=== PATIENT | female | born 1950 | race Caucasian/White ===

== ENCOUNTER 2018-04-30 12:34 | Emergency (ER) | payer MEDICARE, OTHER ==
[~2018-04-30] VITALS: Ht 584.7 cm; Wt 70.0 kg
[~2018-04-30 12:34] MED LIST: ALBU8.5H8 INH; ALPR0.5T8 PO; AMIT-106 PO; CETI-194 PO; DIPH25CA83 PO; ESTR0.5T PO; HYDR12.5 PO; SENN-99 PO; SOTA80TA26 PO; SOTA80TA46 PO; WARF2.5T82 PO
[2018-04-30 13:08] LABS: BASOPHILS % (AUTO) 0.4 % (0-1); EOSINOPHILS # (AUTO) 0.1 X10'3 (0-0.9); EOSINOPHILS % (AUTO) 2.5 % (0-6); HEMATOCRIT 43.4 % (35.0-45.0); HEMOGLOBIN 14.8 g/dl (12.0-16.0); LYMPHOCYTES # (AUTO) 1.4 X10'3 (1.1-4.8); LYMPHOCYTES % (AUTO) 29.5 % (21-51); MEAN CORPUSCULAR HEMOGLOBIN 32.3 PG (27.0-31.0); MEAN CORPUSCULAR HGB CONC 34.2 % (33.0-36.5); MEAN CORPUSCULAR VOLUME 94.3 FL (78-98); MEAN PLATELET VOLUME 8.6 FL (7.4-10.4); MONOCYTES # (AUTO) 0.4 X10'3 (0-0.9); MONOCYTES % (AUTO) 8.6 % (2-12); NEUTROPHILS # (AUTO) 2.9 X10'3 (1.8-7.7); PLATELET COUNT 133 X10'3 (140-440); RED CELL DISTRIBUTION WIDTH 13.9 % (11.5-14.5); WHITE BLOOD COUNT 4.9 X10'3 (4.5-11.0)
[2018-04-30 13:21] LABS: ALANINE AMINOTRANSFERASE 29 U/L (12-78); ALBUMIN 3.4 G/DL (3.4-5.0); ALBUMIN/GLOBULIN RATIO 0.9 (1.1-1.5); ALKALINE PHOSPHATASE 66 IU/L (46-116); ANION GAP 9 (8-16); ASPARTATE AMINO TRANSFERASE 30 U/L (10-37); BILIRUBIN,TOTAL 0.3 MG/DL (0.1-1.0); BLOOD UREA NITROGEN 8 MG/DL (7-18); BUN/CREATININE RATIO 9.6 (6.6-38.0); CALCIUM 8.3 MG/DL (8.5-10.1); CHLORIDE 104 MMOL/L (99-107); CREATININE 0.83 MG/DL (0.40-0.90); GLUCOSE 87 MG/DL (70-104); POTASSIUM 3.9 MMOL/L (3.5-5.1); SODIUM 136 MMOL/L (135-145); TOTAL CARBON DIOXIDE 22.8 MMOL/L (24-32); TOTAL PROTEIN 7.2 G/DL (6.4-8.2); eGFR 69 ML/MIN
[2018-04-30 13:24] LABS: PARTIAL THROMBOPLASTIN TIME 28 SECONDS (22-32); PROTHROMBIN TIME 10.7 SECONDS (9.0-12.0)
[2018-04-30] MEDS ORDERED: normal saline 1000ML IV soln IVB ONE (14:10)
[2018-04-30 15:00] VITALS: BP 163/88
== END 2018-04-30 15:05 | disposition home or self-care (01) ==
LOC: ER 12:35
DX: R07.89 Other chest pain (principal); R19.7 Diarrhea, unspecified; R06.02 Shortness of breath; R11.2 Nausea with vomiting, unspecified; G43.909 Migraine, unspecified, not intractable, without status migrainosus; I48.91 Unspecified atrial fibrillation; I10 Essential (primary) hypertension; Z90.49 Acquired absence of other specified parts of digestive tract; Z79.01 Long term (current) use of anticoagulants; Z79.899 Other long term (current) drug therapy
CPT/HCPCS: 36415; 71045; 80053; 84484; 85025; 85610; 85730; 93005; 96360; 99285; J7030

== ENCOUNTER 2018-11-12 12:02 | Emergency (ER) | payer MEDICARE, OTHER ==
[~2018-11-12] VITALS: Ht 170.2 cm; Wt 68.2 kg
[~2018-11-12 12:02] MED LIST changes: +ALBU6.7H INH; +AZIT250T PO; +ROBCFL PO
[2018-11-12] MEDS ORDERED: methylPREDNISolone sod succ 125mg/2ml vial IV ONE (12:20)
[2018-11-12] MEDS ORDERED: CefTRIAXone 2gm/D5W 50ml 50 ML IV ONE (12:20)
[2018-11-12] MEDS ORDERED: ipratropium/albuterol 3ml nebule NEB ONE (12:20)
[2018-11-12] MEDS ORDERED: azithromycin/NS 500mg/250ml 250 ML IV ONE (12:20)
[2018-11-12] MEDS ORDERED: normal saline 1000ML IV soln IV ONE (12:20)
[2018-11-12 13:05] LABS: BASOPHILS % (AUTO) 0.3 % (0-1); EOSINOPHILS # (AUTO) 0.2 X10'3 (0-0.9); EOSINOPHILS % (AUTO) 2.1 % (0-6); HEMOGLOBIN 14.5 g/dl (12.0-16.0); LYMPHOCYTES # (AUTO) 1.7 X10'3 (1.1-4.8); LYMPHOCYTES % (AUTO) 19.1 % (21-51); MEAN CORPUSCULAR HEMOGLOBIN 31.6 PG (27.0-31.0); MEAN CORPUSCULAR HGB CONC 33.7 % (33.0-36.5); MEAN PLATELET VOLUME 8.4 FL (7.4-10.4); MONOCYTES # (AUTO) 0.7 X10'3 (0-0.9); MONOCYTES % (AUTO) 8.1 % (2-12); NEUTROPHILS # (AUTO) 6.1 X10'3 (1.8-7.7); NEUTROPHILS % (AUTO) 70.4 % (42-75); PLATELET COUNT 269 X10'3 (140-440); RED BLOOD COUNT 4.57 X10'6 (4.20-5.60); RED CELL DISTRIBUTION WIDTH 13.1 % (11.5-14.5); WHITE BLOOD COUNT 8.6 X10'3 (4.5-11.0)
[2018-11-12 13:13] LABS: INR 1.8 INR; PROTHROMBIN TIME 17.7 SECONDS (9.0-12.0)
[2018-11-12 13:16] LABS: ALANINE AMINOTRANSFERASE 27 U/L (12-78); ALBUMIN 3.7 G/DL (3.4-5.0); ALBUMIN/GLOBULIN RATIO 0.9 (1.1-1.5); ALKALINE PHOSPHATASE 69 IU/L (46-116); ANION GAP 14 (8-16); ASPARTATE AMINO TRANSFERASE 21 U/L (10-37); BILIRUBIN,TOTAL 0.2 MG/DL (0.1-1.0); BLOOD UREA NITROGEN 11 MG/DL (7-18); BUN/CREATININE RATIO 13.1 (6.6-38.0); CHLORIDE 97 MMOL/L (99-107); CREATININE 0.84 MG/DL (0.40-0.90); GLUCOSE 91 MG/DL (70-104); POTASSIUM 4.3 MMOL/L (3.5-5.1); SODIUM 134 MMOL/L (135-145); TOTAL CARBON DIOXIDE 22.7 MMOL/L (24-32); eGFR 68 ML/MIN
[2018-11-12] MEDS ORDERED: ondansetron/PF 4mg/2ml inj IV ONE (13:20)
[2018-11-12] MEDS ORDERED: famotidine/PF 10 mg/ml inj IV ONE (13:20)
[2018-11-12 13:51] LABS: CLARITY,URINE CLEAR (Clear); COLOR,URINE STRAW (Yellow); GLUCOSE, URINE NEGATIVE (Neg); KETONES,URINE NEGATIVE (Neg); LEUKOCYTE ESTERASE ,URINE NEGATIVE (Neg); NITRITES, URINE NEGATIVE (Neg); OCCULT BLOOD,URINE NEGATIVE (Neg); PROTEIN,URINE NEGATIVE (Neg); UROBILINOGEN,URINE 0.2 E.U/dL (0.2-1.0)
[2018-11-12 13:54] LABS: UA COLLECTION TYPE CLN CATCH MIDSTREAM
[2018-11-12 15:03] VITALS: BP 174/98
[2018-11-12] MEDS ORDERED: GUAI473S11 PO (15:07)
[2018-11-12] MEDS ORDERED: LEVO500T2 PO (15:07)
[2018-11-12] MEDS ORDERED: PRED20TA PO (15:07)
--- NOTE | 2018-11-12 18:33 | NUR ---
Pts sister called about the pharamacist explaining to them that the perscribed levaquin interacts with her sotolol and warfarin. Dr. Hampton consulted and perscribed zithromax. When I called pt to inform them she reports that she has already taken this medication twice to no effect. Informed Dr. Hampton who will have Dusty Ramesh follow up with regards to this as he saw the patient in the ed.
== END 2018-11-12 16:02 | disposition home or self-care (01) ==
LOC: ER 12:03
DX: J18.9 Pneumonia, unspecified organism (principal); I48.91 Unspecified atrial fibrillation; I10 Essential (primary) hypertension; Z90.49 Acquired absence of other specified parts of digestive tract; F17.200 Nicotine dependence, unspecified, uncomplicated; Z79.2 Long term (current) use of antibiotics; Z79.01 Long term (current) use of anticoagulants; Z79.899 Other long term (current) drug therapy
CPT/HCPCS: 36415; 71045; 80053; 81003; 83605; 84145; 84484; 85025; 85610; 87040; 93005; 94640; 94760; 96365; 96368; 96375; 99284; J0456; J0696; J2405; J2930; J3490

== ENCOUNTER 2019-07-15 10:19 | Emergency (ER) | payer MEDICARE, OTHER ==
[~2019-07-15] VITALS: Ht 170.2 cm; Wt 66.0 kg
[~2019-07-15 10:19] MED LIST changes: -ALBU6.7H INH; +ALBU6.7H9 INH; -AMIT-106 PO; +AMIT25TA9 PO; -ROBCFL PO
[2019-07-15] MEDS ORDERED: ipratropium/albuterol 3ml nebule NEB ONE (11:45)
[2019-07-15] MEDS ORDERED: AMOX-580 PO (11:48)
[2019-07-15] MEDS ORDERED: METH4TAB81 PO (11:48)
[2019-07-15] MEDS ORDERED: AZIT250T83 PO (11:48)
[2019-07-15 11:53] LABS: BASOPHILS % (AUTO) 0.3 % (0-1); EOSINOPHILS # (AUTO) 0.1 X10'3 (0-0.9); EOSINOPHILS % (AUTO) 0.7 % (0-6); HEMATOCRIT 42.7 % (35.0-45.0); HEMOGLOBIN 14.6 g/dl (12.0-16.0); LYMPHOCYTES # (AUTO) 0.9 X10'3 (1.1-4.8); LYMPHOCYTES % (AUTO) 9.6 % (21-51); MEAN CORPUSCULAR HEMOGLOBIN 32.2 PG (27.0-31.0); MEAN CORPUSCULAR HGB CONC 34.2 g/dL (33.0-36.5); MEAN CORPUSCULAR VOLUME 94.2 FL (78-98); MONOCYTES % (AUTO) 10.5 % (2-12); NEUTROPHILS # (AUTO) 7.2 X10'3 (1.8-7.7); NEUTROPHILS % (AUTO) 78.9 % (42-75); PLATELET COUNT 191 X10'3 (140-440); RED BLOOD COUNT 4.53 X10'6 (4.20-5.60); RED CELL DISTRIBUTION WIDTH 13.5 % (11.5-14.5); WHITE BLOOD COUNT 9.1 X10'3 (4.5-11.0)
[2019-07-15 11:59] LABS: PARTIAL THROMBOPLASTIN TIME 37 SECONDS (22-32)
[2019-07-15 12:01] LABS: ALANINE AMINOTRANSFERASE 23 U/L (12-78); ALBUMIN 3.5 G/DL (3.4-5.0); ALBUMIN/GLOBULIN RATIO 0.9 (1.1-1.5); ALKALINE PHOSPHATASE 68 IU/L (46-116); ANION GAP 12 (8-16); ASPARTATE AMINO TRANSFERASE 17 U/L (10-37); BILIRUBIN,TOTAL 0.3 MG/DL (0.1-1.0); BLOOD UREA NITROGEN 10 MG/DL (7-18); BUN/CREATININE RATIO 11.6 (6.6-38.0); CALCIUM 8.5 MG/DL (8.5-10.1); CHLORIDE 103 MMOL/L (99-107); CREATININE 0.86 MG/DL (0.40-0.90); GLUCOSE 117 MG/DL (70-104); POTASSIUM 4.1 MMOL/L (3.5-5.1); SODIUM 136 MMOL/L (135-145); TOTAL CARBON DIOXIDE 21.3 MMOL/L (24-32); TOTAL PROTEIN 7.3 G/DL (6.4-8.2); eGFR 66 ML/MIN
--- NOTE | 2019-07-15 12:14 | NUR ---
PESPIRATORY THERAPY PAGED
[2019-07-15] MEDS ORDERED: CefTRIAXone 1000mg IM Kit (w/lidocaine diluent) IM ONE (12:25)
[2019-07-15] MEDS ORDERED: methylPREDNISolone sod succ 125mg/2ml vial IM ONE (12:55)
[2019-07-15 14:24] VITALS: BP 135/71
== END 2019-07-15 13:53 | disposition home or self-care (01) ==
LOC: ER 10:20
DX: J44.1 Chronic obstructive pulmonary disease with (acute) exacerbation (principal); G43.909 Migraine, unspecified, not intractable, without status migrainosus; I48.91 Unspecified atrial fibrillation; I10 Essential (primary) hypertension; J44.9 Chronic obstructive pulmonary disease, unspecified; Z90.49 Acquired absence of other specified parts of digestive tract; Z88.5 Allergy status to narcotic agent; Z88.1 Allergy status to other antibiotic agents; Z79.2 Long term (current) use of antibiotics; Z79.899 Other long term (current) drug therapy; Z79.01 Long term (current) use of anticoagulants
CPT/HCPCS: 36415; 71045; 80053; 84484; 85025; 85610; 85730; 93005; 94640; 94760; 96372; 99284; J0696; J2930